=== PATIENT | male | born 1940 | race Caucasian/White ===

== ENCOUNTER → 2021-01-01 | Outpatient (CLI) | payer MEDICARE ==
[~2021-01-01] MED LIST: ALBOZ PO; GADOTERATE 10 MMOL/20ML SYR ONE; LEVO25TA2 PO; LOSA50TA14 PO; OXYC5TAB98 PO; SENN1TAB67 PO; TRAM-47 PO; WARF-36 PO
== END | disposition home or self-care (01) ==
LOC: RAD 07:30
DX: M51.16 Intervertebral disc disorders with radiculopathy, lumbar region (principal); M48.061 Spinal stenosis, lumbar region without neurogenic claudication; M25.78 Osteophyte, vertebrae
CPT/HCPCS: 72158; A9575

== ENCOUNTER → 2021-01-27 | Outpatient (CLI) | payer MEDICARE ==
[~2021-01-27] MED LIST changes: -GADOTERATE 10 MMOL/20ML SYR ONE; +GADOTERATE 7.5 MMOL/15ML SYR ONE
== END | disposition home or self-care (01) ==
LOC: RAD 10:46
DX: M51.36 Other intervertebral disc degeneration, lumbar region (principal); M60.9 Myositis, unspecified; Z96.642 Presence of left artificial hip joint
CPT/HCPCS: 72197; A9575